=== PATIENT | female | born 1990 | race Asian ===

== ENCOUNTER 2024-03-17 01:17 | Emergency (ER) | payer BC ==
[~2024-03-17] VITALS: Ht 172.7 cm; Wt 74.8 kg
[2024-03-17 01:26] VITALS: BP_SYST 127; PULSE 61; RESP 18; TEMP 96.8; O2SAT 100
[2024-03-17] MEDS: NACL 0.9% 1,000 ML IV ONE (01:52)
[2024-03-17] MEDS: MECLIZINE HCL 25 MG TABLET (ANITVERT) PO ONE (01:53)
[2024-03-17 03:59] VITALS: BP_SYST 102; PULSE 71; RESP 18; TEMP 97.6; O2SAT 99
== END 2024-03-17 03:59 | disposition home or self-care (01) ==
LOC: SED 01:17
DX: H81.10 Benign paroxysmal vertigo, unspecified ear (principal); R11.2 Nausea with vomiting, unspecified
CPT/HCPCS: 99283; 96360; J7030; J8597